=== PATIENT | male | born 1985 | race African-American/Black ===

== ENCOUNTER 2022-02-07 22:06 | Inpatient (IN) | payer MEDICAID, SELFPAY ==
[~2022-02-07] VITALS: Ht 175.3 cm; Wt 95.8 kg
[~2022-02-07 22:06] MED LIST: CEPH-558 PO; DIVA-112 PO; FLUO10TA3 PO; QUET200T5 PO; TOPI25 PO
[2022-02-08 00:37] LABS: COVID AG,FIA SOURCE NASAL SWAB
[2022-02-08 00:52] LABS: BASOPHILS % (AUTO) 0.4 % (0.0-2.0); EOSINOPHILS % (AUTO) 0.3 % (1.0-6.0); HEMOGLOBIN 14.8 g/dL (13.5-17.5); LYMPHOCYTES # (AUTO) 1.3 K/uL (1.0-4.8); MEAN CORPUSCULAR HEMOGLOBIN 28.8 pg (26.0-34.0); MEAN CORPUSCULAR HGB CONC 33.7 G/dL (31.0-37.0); MEAN CORPUSCULAR VOLUME 86 fL (80-100); MONOCYTES # (AUTO) 1.2 K/uL (0.1-1.0); MONOCYTES % (AUTO) 12.1 % (2.0-9.0); NEUTROPHILS # (AUTO) 7.3 K/uL (1.8-7.7); NEUTROPHILS % (AUTO) 74.2 % (40.0-70.0); PLATELET COUNT (AUTO) 321 K/uL (150-450); RED BLOOD CELL COUNT(AUTO) 5.15 MIL/uL (4.50-5.90); RED CELL DISTRIBUTION WIDTH 13.2 % (11.5-14.5)
[2022-02-08 00:58] LABS: ANION GAP 10 mmol/L (8-16); CALCIUM, TOTAL 10.1 mg/dL (8.8-10.5); CARBON DIOXIDE 27 mmol/L (22-29); CHLORIDE 101 mmol/L (98-107); CREATININE 1.72 mg/dL (0.60-1.30); GLUCOSE,RANDOM 116 mg/dL (70-110); POTASSIUM 3.7 mmol/L (3.5-5.1); SODIUM SERUM 138 mmol/L (136-145); UREA NITROGEN, BLOOD 17 mg/dL (7-18)
[2022-02-08 00:59] LABS: GLOMERULAR FILTR. RATE CALC 55 mL/min (>60)
[2022-02-08 01:06] LABS: ALANINE AMINOTRANSFERASE 24 U/L (12-78); ALBUMIN 4.5 g/dL (3.4-5.0); ALKALINE PHOSPHATASE 82 U/L (46-116); ASPARTATE AMINOTRANSFERASE 29 U/L (15-37); BILIRUBIN,TOTAL 0.5 mg/dL (0.1-1.0); TOTAL PROTEIN, SERUM 9.2 g/dL (6.4-8.2)
[2022-02-08 01:07] LABS: VALPROIC ACID < 3 mcg/mL (50-100)
[2022-02-08 05:27] LABS: AMPHET/METH SCREEN,URINE NEGATIVE (NEGATIVE); BARBITURATE SCREEN, URINE NEGATIVE (NEGATIVE); BENZODIAZEPINES SCREEN,URINE NEGATIVE (NEGATIVE); CANNABINOID SCREEN,URINE NEGATIVE (NEGATIVE); COCAINE SCREEN,URINE NEGATIVE (NEGATIVE); METHADONE SCREEN, URINE NEGATIVE (NEGATIVE); OPIATE SCREEN,URINE NEGATIVE (NEGATIVE)
[2022-02-08 05:29] LABS: PHENCYCLIDINE SCREEN,URINE NEGATIVE (NEGATIVE)
[2022-02-08] MEDS ORDERED: QUEtiapine FUMARATE 100 MG TABLET PO PRN (07:30)
[2022-02-08] MEDS ORDERED: LORazepam 2 MG TABLET PO PRN (07:30)
[2022-02-08] MEDS ORDERED: ZOLPIDEM TARTRATE 10 MG TABLET PO PRN (07:30)
[2022-02-08 09:11] LABS: APPEARANCE,URINE CLEAR (CLEAR); BILIRUBIN,URINE NEGATIVE (NEGATIVE); GLUCOSE, URINE (UA) NEGATIVE (NEGATIVE); KETONES,URINE NEGATIVE (NEGATIVE); LEUKOCYTE ESTERASE ,URINE NEGATIVE (NEGATIVE); NITRATE,URINE NEGATIVE (NEGATIVE); OCCULT BLOOD,URINE NEGATIVE (NEGATIVE); PH,URINE 5.5 (5.0-8.0); PROTEIN,URINE NEGATIVE (NEGATIVE); SPECIFIC GRAVITIY, URINE 1.009 (1.003-1.030); UROBILINOGEN,URINE <=1.0 mg/dL (<=1.0)
[2022-02-08 09:18] LABS: AMPHET/METH SCREEN,URINE NEGATIVE (NEGATIVE); BARBITURATE SCREEN, URINE NEGATIVE (NEGATIVE); BENZODIAZEPINES SCREEN,URINE NEGATIVE (NEGATIVE); CANNABINOID SCREEN,URINE NEGATIVE (NEGATIVE); COCAINE SCREEN,URINE NEGATIVE (NEGATIVE); METHADONE SCREEN, URINE NEGATIVE (NEGATIVE); OPIATE SCREEN,URINE NEGATIVE (NEGATIVE)
[2022-02-08 09:19] LABS: PHENCYCLIDINE SCREEN,URINE NEGATIVE (NEGATIVE)
[2022-02-08 16:18] VITALS: BP 124/86
[2022-02-08] MEDS ORDERED: MIRTAZAPINE 15 MG TABLET PO ONE (19:30)
[2022-02-08] MEDS ORDERED: TUBERCULIN, PURIFIED PROTEIN DERIVATIVE 5 TU/0.1 ML SYRINGE ID ONE (19:30)
[2022-02-08] MEDS ORDERED: LOPERAMIDE HCL 2 MG CAPSULE PO PRN (19:30)
[2022-02-08] MEDS ORDERED: GuaiFENesin/D-METHORPHAN [SUGAR-FREE] 200-20MG/10 ML SYRUP UDCUP PO PRN (19:30)
[2022-02-08] MEDS ORDERED: MAGNESIUM HYDROXIDE SUSPENSION 30 ML UDCUP PO PRN (19:30)
[2022-02-08] MEDS ORDERED: PROMETHAZINE HCL 25 MG TABLET PO PRN (19:30)
[2022-02-08] MEDS ORDERED: MAG HYDROX/AL HYDROX/SIMETH ES 30 ML SUSPENSION UDCUP PO PRN (19:30)
[2022-02-08] MEDS ORDERED: HydrOXYzine PAMOATE 50 MG CAPSULE PO PRN (19:30)
[2022-02-08] MEDS: BENZOCAINE/MENTHOL/ZINC CL 20% 11.9 GM GEL TP PRN (19:43)
[2022-02-08] MEDS: LevETIRAcetam 500 MG TABLET PO SCH (19:43)
[2022-02-08] MEDS: ACETAMINOPHEN 325 MG TABLET PO PRN (20:04)
[2022-02-08] MEDS: MELATONIN 5 MG TABLET PO SCH (20:04)
[2022-02-08] MEDS ORDERED: QUEtiapine FUMARATE 200 MG TABLET PO SCH (21:00)
[2022-02-09 06:52] LABS: CHOL/HDL RATIO 4.6 (4.2-7.3); FREE T4 (FREE THYROXINE) 0.75 ng/dL (0.76-1.46); THYROID STIMULATING HORMONE 3.67 uIU/mL (0.36-3.74)
[2022-02-09 07:29] LABS: HEMOGLOBIN A1C 5.8 % (3.8-5.6)
[2022-02-09 08:30] VITALS: BP 143/99
[2022-02-09] MEDS: LevETIRAcetam 500 MG TABLET PO SCH ×2 (08:34→16:20)
[2022-02-09] MEDS: DIVALPROEX SODIUM 500 MG DR TABLET PO SCH ×2 (08:34→16:20)
[2022-02-09] MEDS: THIAMINE 100 MG TABLET PO SCH ×2 (08:34→17:00)
[2022-02-09] MEDS: FOLIC ACID 1 MG TABLET PO SCH (08:34)
[2022-02-09] MEDS: OMEGA-3/DHA/EPA/FISH OIL 1,000 MG CAPSULE PO SCH (08:34)
[2022-02-09] MEDS: TOPIRAMATE 25 MG TABLET PO SCH ×2 (08:34→16:20)
[2022-02-09] MEDS: DEXTROMETHORPHAN HBR/QUINIDINE 20/10 MG CAPSULE PO SCH (08:35)
[2022-02-09] MEDS: MULTIVITAMINS WITH MINERALS, THERAPEUTIC TABLET PO SCH (08:35)
[2022-02-09] MEDS ORDERED: TOPIRAMATE 25 MG TABLET PO SCH (09:00)
[2022-02-09 16:52] VITALS: BP 120/79
[2022-02-09] MEDS: MELATONIN 5 MG TABLET PO SCH (20:57)
[2022-02-09] MEDS ORDERED: MIRTAZAPINE 15 MG TABLET PO SCH (21:00)
[2022-02-09] MEDS: QUEtiapine FUMARATE 300 MG TABLET PO SCH (21:07)
[2022-02-10] MEDS: BENZOCAINE/MENTHOL/ZINC CL 20% 11.9 GM GEL TP PRN ×2 (02:31→16:57)
[2022-02-10] MEDS: FOLIC ACID 1 MG TABLET PO SCH (09:50)
[2022-02-10] MEDS: LevETIRAcetam 500 MG TABLET PO SCH ×2 (09:50→16:51)
[2022-02-10] MEDS: THIAMINE 100 MG TABLET PO SCH ×2 (09:50→16:51)
[2022-02-10] MEDS: TOPIRAMATE 25 MG TABLET PO SCH ×2 (09:50→16:51)
[2022-02-10] MEDS: OMEGA-3/DHA/EPA/FISH OIL 1,000 MG CAPSULE PO SCH (09:50)
[2022-02-10] MEDS: MULTIVITAMINS WITH MINERALS, THERAPEUTIC TABLET PO SCH (09:50)
[2022-02-10] MEDS: DEXTROMETHORPHAN HBR/QUINIDINE 20/10 MG CAPSULE PO SCH (09:50)
[2022-02-10] MEDS: DIVALPROEX SODIUM 500 MG DR TABLET PO SCH ×2 (09:50→16:51)
[2022-02-10 10:16] LABS: ALBUMIN 3.6 g/dL (3.4-5.0); BILIRUBIN,TOTAL 0.3 mg/dL (0.1-1.0); CALCIUM, TOTAL 9.3 mg/dL (8.8-10.5); CREATININE 1.63 mg/dL (0.60-1.30); POTASSIUM 3.7 mmol/L (3.5-5.1); TOTAL PROTEIN, SERUM 8.1 g/dL (6.4-8.2)
[2022-02-10 16:00] VITALS: BP 116/69
[2022-02-10] MEDS: QUEtiapine FUMARATE 300 MG TABLET PO SCH (20:10)
[2022-02-10] MEDS: MELATONIN 5 MG TABLET PO SCH (20:10)
[2022-02-10] MEDS: MIRTAZAPINE 30 MG TABLET PO SCH (20:10)
[2022-02-11] MEDS: OMEGA-3/DHA/EPA/FISH OIL 1,000 MG CAPSULE PO SCH (08:58)
[2022-02-11] MEDS: FOLIC ACID 1 MG TABLET PO SCH (08:58)
[2022-02-11] MEDS: DEXTROMETHORPHAN HBR/QUINIDINE 20/10 MG CAPSULE PO SCH (08:58)
[2022-02-11] MEDS: MULTIVITAMINS WITH MINERALS, THERAPEUTIC TABLET PO SCH (08:58)
[2022-02-11] MEDS: DIVALPROEX SODIUM 500 MG DR TABLET PO SCH ×3 (08:58→16:26)
[2022-02-11] MEDS: LevETIRAcetam 500 MG TABLET PO SCH ×2 (08:58→16:26)
[2022-02-11] MEDS: THIAMINE 100 MG TABLET PO SCH ×2 (08:58→16:26)
[2022-02-11] MEDS: TOPIRAMATE 25 MG TABLET PO SCH ×2 (08:58→16:26)
[2022-02-11 09:16] VITALS: BP 139/97
[2022-02-11 16:08] VITALS: BP 133/77
[2022-02-11] MEDS: MIRTAZAPINE 30 MG TABLET PO SCH (20:55)
[2022-02-11] MEDS: MELATONIN 5 MG TABLET PO SCH (20:56)
[2022-02-11] MEDS: QUEtiapine FUMARATE 200 MG TABLET PO SCH (20:56)
[2022-02-12 08:42] VITALS: BP 142/96
[2022-02-12] MEDS: THIAMINE 100 MG TABLET PO SCH ×2 (09:30→16:30)
[2022-02-12] MEDS: TOPIRAMATE 25 MG TABLET PO SCH ×2 (09:30→16:30)
[2022-02-12] MEDS: MULTIVITAMINS WITH MINERALS, THERAPEUTIC TABLET PO SCH (09:30)
[2022-02-12] MEDS: DIVALPROEX SODIUM 500 MG DR TABLET PO SCH ×3 (09:30→16:30)
[2022-02-12] MEDS: OMEGA-3/DHA/EPA/FISH OIL 1,000 MG CAPSULE PO SCH (09:30)
[2022-02-12] MEDS: LevETIRAcetam 500 MG TABLET PO SCH ×2 (09:30→16:30)
[2022-02-12] MEDS: DEXTROMETHORPHAN HBR/QUINIDINE 20/10 MG CAPSULE PO SCH (09:31)
[2022-02-12] MEDS: FOLIC ACID 1 MG TABLET PO SCH (09:31)
[2022-02-12 16:24] VITALS: BP 131/90
[2022-02-12] MEDS: MIRTAZAPINE 30 MG TABLET PO SCH (20:04)
[2022-02-12] MEDS: QUEtiapine FUMARATE 200 MG TABLET PO SCH (20:04)
[2022-02-12] MEDS: MELATONIN 5 MG TABLET PO SCH (20:04)
[2022-02-13 08:00] VITALS: BP 136/81
[2022-02-13] MEDS: OMEGA-3/DHA/EPA/FISH OIL 1,000 MG CAPSULE PO SCH (09:34)
[2022-02-13] MEDS: FOLIC ACID 1 MG TABLET PO SCH (09:34)
[2022-02-13] MEDS: THIAMINE 100 MG TABLET PO SCH ×2 (09:34→17:54)
[2022-02-13] MEDS: MULTIVITAMINS WITH MINERALS, THERAPEUTIC TABLET PO SCH (09:34)
[2022-02-13] MEDS: DEXTROMETHORPHAN HBR/QUINIDINE 20/10 MG CAPSULE PO SCH (09:35)
[2022-02-13] MEDS: LevETIRAcetam 500 MG TABLET PO SCH ×2 (09:35→17:54)
[2022-02-13] MEDS: DIVALPROEX SODIUM 500 MG DR TABLET PO SCH ×3 (09:35→17:54)
[2022-02-13] MEDS: TOPIRAMATE 25 MG TABLET PO SCH ×2 (09:35→17:54)
[2022-02-13] MEDS: BENZOCAINE/MENTHOL/ZINC CL 20% 11.9 GM GEL TP PRN (13:36)
[2022-02-13] MEDS: ACETAMINOPHEN 325 MG TABLET PO PRN (13:36)
[2022-02-13 16:03] VITALS: BP 125/75
[2022-02-13] MEDS: QUEtiapine FUMARATE 200 MG TABLET PO SCH (20:15)
[2022-02-13] MEDS: MIRTAZAPINE 30 MG TABLET PO SCH (20:24)
[2022-02-13] MEDS: MELATONIN 5 MG TABLET PO SCH (20:25)
[2022-02-14 06:28] LABS: COVID AG,FIA SOURCE NASAL SWAB
[2022-02-14] MEDS: DIVALPROEX SODIUM 500 MG DR TABLET PO SCH ×3 (08:09→16:44)
[2022-02-14] MEDS: FOLIC ACID 1 MG TABLET PO SCH (08:09)
[2022-02-14] MEDS: LevETIRAcetam 500 MG TABLET PO SCH ×2 (08:09→16:38)
[2022-02-14] MEDS: THIAMINE 100 MG TABLET PO SCH ×2 (08:09→16:38)
[2022-02-14] MEDS: MULTIVITAMINS WITH MINERALS, THERAPEUTIC TABLET PO SCH (08:09)
[2022-02-14] MEDS: TOPIRAMATE 25 MG TABLET PO SCH ×2 (08:09→16:38)
[2022-02-14] MEDS: DEXTROMETHORPHAN HBR/QUINIDINE 20/10 MG CAPSULE PO SCH (08:09)
[2022-02-14] MEDS: OMEGA-3/DHA/EPA/FISH OIL 1,000 MG CAPSULE PO SCH (08:09)
[2022-02-14 08:22] VITALS: BP 124/75
[2022-02-14 16:06] VITALS: BP 113/70
[2022-02-14] MEDS: QUEtiapine FUMARATE 200 MG TABLET PO SCH (20:46)
[2022-02-14] MEDS: MELATONIN 5 MG TABLET PO SCH (20:47)
[2022-02-14] MEDS: MIRTAZAPINE 30 MG TABLET PO SCH (20:47)
[2022-02-14] MEDS ORDERED: GABAPENTIN 400 MG CAPSULE PO PRN (21:00)
[2022-02-14] MEDS ORDERED: ESZOPICLONE 3 MG TABLET PO PRN (21:00)
[2022-02-14] MEDS ORDERED: MIRTAZAPINE 30 MG TABLET PO SCH (21:00)
[2022-02-15 08:00] VITALS: BP 136/95
[2022-02-15] MEDS: DEXTROMETHORPHAN HBR/QUINIDINE 20/10 MG CAPSULE PO SCH (10:10)
[2022-02-15] MEDS: LevETIRAcetam 500 MG TABLET PO SCH ×2 (10:12→17:03)
[2022-02-15] MEDS: DIVALPROEX SODIUM 500 MG DR TABLET PO SCH ×3 (10:12→17:03)
[2022-02-15] MEDS: OMEGA-3/DHA/EPA/FISH OIL 1,000 MG CAPSULE PO SCH (10:12)
[2022-02-15] MEDS: TOPIRAMATE 25 MG TABLET PO SCH ×2 (10:12→17:03)
[2022-02-15] MEDS: MULTIVITAMINS WITH MINERALS, THERAPEUTIC TABLET PO SCH (10:13)
[2022-02-15] MEDS: THIAMINE 100 MG TABLET PO SCH ×2 (10:13→17:03)
[2022-02-15] MEDS: FOLIC ACID 1 MG TABLET PO SCH (10:13)
[2022-02-15 16:07] VITALS: BP 134/92
[2022-02-15] MEDS: QUEtiapine FUMARATE 200 MG TABLET PO SCH (20:46)
[2022-02-15] MEDS: MELATONIN 5 MG TABLET PO SCH (20:46)
[2022-02-15] MEDS ORDERED: MIRTAZAPINE 30 MG TABLET PO SCH (21:00)
[2022-02-16 09:21] VITALS: BP 129/92
[2022-02-16] MEDS: DIVALPROEX SODIUM 500 MG DR TABLET PO SCH (09:32)
[2022-02-16] MEDS: DEXTROMETHORPHAN HBR/QUINIDINE 20/10 MG CAPSULE PO SCH (09:32)
[2022-02-16] MEDS: MULTIVITAMINS WITH MINERALS, THERAPEUTIC TABLET PO SCH (09:32)
[2022-02-16] MEDS: LevETIRAcetam 500 MG TABLET PO SCH (09:33)
[2022-02-16] MEDS: TOPIRAMATE 25 MG TABLET PO SCH (09:33)
[2022-02-16] MEDS: OMEGA-3/DHA/EPA/FISH OIL 1,000 MG CAPSULE PO SCH (09:33)
[2022-02-16] MEDS: FOLIC ACID 1 MG TABLET PO SCH (09:33)
[2022-02-16] MEDS: THIAMINE 100 MG TABLET PO SCH (09:33)
[2022-02-16] MEDS ORDERED: MIRT-93 PO (09:52)
[2022-02-16] MEDS ORDERED: OMEG-135 PO (09:52)
[2022-02-16] MEDS ORDERED: QUET200T30 PO (09:52)
[2022-02-16] MEDS ORDERED: LEVE500T8 PO (09:52)
[2022-02-16] MEDS ORDERED: MELA5TAB40 PO (09:52)
[2022-02-16] MEDS ORDERED: TOPI25 PO (09:52)
[2022-02-16] MEDS ORDERED: DIVA-112 PO (09:52)
== END 2022-02-16 10:30 | disposition home or self-care (01) | DRG 750 ==
LOC: EMS 22:09 → 3EI 02-08 14:51
PROVIDERS: ADMIT Psychiatry & Neurology Psychiatry; ATTEND Psychiatry & Neurology Psychiatry
DX: F25.1 Schizoaffective disorder, depressive type (principal); G70.00 Myasthenia gravis without (acute) exacerbation; R45.851 Suicidal ideations; F41.9 Anxiety disorder, unspecified; F60.0 Paranoid personality disorder; N18.9 Chronic kidney disease, unspecified; F32.A Depression, unspecified; Z20.822 Contact with and (suspected) exposure to COVID-19; Z87.820 Personal history of traumatic brain injury; Z65.3 Problems related to other legal circumstances; Z59.00 Homelessness unspecified; Z55.9 Problems related to education and literacy, unspecified; Z63.9 Problem related to primary support group, unspecified; Z79.899 Other long term (current) drug therapy
CPT/HCPCS: 80053; 80061; 80164; 81003; 82550; 83036; 84439; 84443; 85025; 86592; 99285; G0480; Q9967

== ENCOUNTER 2022-04-28 21:20 | Inpatient (IN) | payer MEDICAID ==
[~2022-04-28] VITALS: Ht 175.3 cm; Wt 98.0 kg
[~2022-04-28 21:20] MED LIST changes: +ACET-2247 PO; +ALBU8HFA IH; -CEPH-558 PO; +CLON0.1T2 PO; +DOCU100C33 PO; -FLUO10TA3 PO; +GUAIF10 PO; +IBUP-2492 PO; +LEVE250T PO; +LEVE500T8 PO; +LEVE500T99 PO; +LOPE2TAB26 PO; +MAG-93 PO; +MAGN-169 PO; +MELA5TAB21 PO; +MELA5TAB40 PO; +MIRT-149 PO; +MIRT-93 PO; +NICO-703 TD; +OMEG-135 PO; +ONDA-104 PO; +QUET200T PO; +QUET200T30 PO; -QUET200T5 PO; +TOPI25TA48 PO
[2022-04-28] MEDS ORDERED: PETR18JE3 TP (21:25)
[2022-04-28] MEDS ORDERED: ZOLPIDEM TARTRATE 10 MG TABLET PO PRN (22:15)
[2022-04-28] MEDS ORDERED: HALOPERIDOL 5 MG TABLET PO PRN (22:15)
[2022-04-28] MEDS ORDERED: LORazepam 2 MG TABLET PO PRN (22:15)
[2022-04-28 23:53] VITALS: BP 121/86
[2022-04-29] MEDS ORDERED: GuaiFENesin/D-METHORPHAN [SUGAR-FREE] 200-20MG/10 ML SYRUP UDCUP PO PRN (00:45)
[2022-04-29] MEDS ORDERED: MAGNESIUM HYDROXIDE SUSPENSION 30 ML UDCUP PO PRN (00:45)
[2022-04-29] MEDS ORDERED: PETROLATUM,WHITE 28 GM JELLY TP PRN (00:45)
[2022-04-29] MEDS ORDERED: ACETAMINOPHEN 325 MG TABLET PO PRN (00:45)
[2022-04-29] MEDS ORDERED: LOPERAMIDE HCL 2 MG CAPSULE PO PRN (00:45)
[2022-04-29] MEDS ORDERED: DOCUSATE SODIUM 100 MG CAPSULE PO PRN (00:45)
[2022-04-29] MEDS ORDERED: ONDANSETRON HCL 4 MG TABLET PO PRN (00:45)
[2022-04-29] MEDS ORDERED: MAG HYDROX/AL HYDROX/SIMETH ES 30 ML SUSPENSION UDCUP PO PRN (00:45)
[2022-04-29] MEDS ORDERED: IBUPROFEN 400 MG TABLET PO PRN (00:45)
[2022-04-29] MEDS ORDERED: CloNIDine HCL 0.1 MG TABLET PO PRN (00:45)
[2022-04-29] MEDS ORDERED: ALBUTEROL SULFATE HFA 90 MCG/PUFF 8 GM INHALER IH PRN (00:45)
[2022-04-29] MEDS ORDERED: NICOTINE 14 MG/24 HOUR PATCH TD PRN (00:45)
[2022-04-29] MEDS: LevETIRAcetam 500 MG TABLET PO SCH ×2 (08:15→16:07)
[2022-04-29] MEDS: TOPIRAMATE 25 MG TABLET PO SCH ×2 (08:15→16:07)
[2022-04-29] MEDS: OMEGA-3/DHA/EPA/FISH OIL 1,000 MG CAPSULE PO SCH (08:15)
[2022-04-29 09:10] VITALS: BP 133/50
[2022-04-29 16:00] VITALS: BP 100/72
[2022-04-29] MEDS: QUEtiapine FUMARATE 200 MG TABLET PO SCH (20:28)
[2022-04-29] MEDS: MELATONIN 5 MG TABLET PO SCH (20:29)
[2022-04-29] MEDS: MIRTAZAPINE 15 MG TABLET PO SCH (20:29)
[2022-04-29 20:57] VITALS: BP 116/86
[2022-04-30 08:15] VITALS: BP 104/60
[2022-04-30 08:51] LABS: BASOPHILS % (AUTO) 0.7 % (0.0-2.0); EOSINOPHILS % (AUTO) 7.1 % (1.0-6.0); HEMATOCRIT 43.8 % (41-53); HEMOGLOBIN 14.7 g/dL (13.5-17.5); LYMPHOCYTES # (AUTO) 1.9 K/uL (1.0-4.8); LYMPHOCYTES % (AUTO) 41.7 % (22.0-44.0); MEAN CORPUSCULAR HEMOGLOBIN 28.9 pg (26.0-34.0); MEAN CORPUSCULAR HGB CONC 33.6 G/dL (31.0-37.0); MEAN CORPUSCULAR VOLUME 86 fL (80-100); MONOCYTES # (AUTO) 0.3 K/uL (0.1-1.0); MONOCYTES % (AUTO) 7.1 % (2.0-9.0); NEUTROPHILS % (AUTO) 43.4 % (40.0-70.0); PLATELET COUNT (AUTO) 335 K/uL (150-450); RED BLOOD CELL COUNT(AUTO) 5.09 MIL/uL (4.50-5.90); RED CELL DISTRIBUTION WIDTH 12.8 % (11.5-14.5)
[2022-04-30] MEDS: OMEGA-3/DHA/EPA/FISH OIL 1,000 MG CAPSULE PO SCH (08:52)
[2022-04-30] MEDS: LevETIRAcetam 500 MG TABLET PO SCH ×2 (08:52→17:05)
[2022-04-30] MEDS: TOPIRAMATE 25 MG TABLET PO SCH ×2 (08:52→17:45)
[2022-04-30 08:59] LABS: HEMOGLOBIN A1C 5.7 % (3.8-5.6)
[2022-04-30 09:18] LABS: ALANINE AMINOTRANSFERASE 19 U/L (12-78); ALBUMIN 3.9 g/dL (3.4-5.0); ALKALINE PHOSPHATASE 76 U/L (46-116); ANION GAP 8 mmol/L (8-16); ASPARTATE AMINOTRANSFERASE 18 U/L (15-37); BILIRUBIN,TOTAL 0.2 mg/dL (0.1-1.0); CALCIUM, TOTAL 9.3 mg/dL (8.8-10.5); CARBON DIOXIDE 26 mmol/L (22-29); CHLORIDE 106 mmol/L (98-107); CREATININE 1.32 mg/dL (0.60-1.30); GLOMERULAR FILTR. RATE CALC > 60 mL/min (>60); GLUCOSE,RANDOM 109 mg/dL (70-110); POTASSIUM 3.7 mmol/L (3.5-5.1); SODIUM SERUM 140 mmol/L (136-145); THYROID STIMULATING HORMONE 3.01 uIU/mL (0.36-3.74); TOTAL PROTEIN, SERUM 8.8 g/dL (6.4-8.2); UREA NITROGEN, BLOOD 13 mg/dL (7-18)
[2022-04-30 16:00] VITALS: BP 139/62
[2022-04-30] MEDS: QUEtiapine FUMARATE 200 MG TABLET PO SCH (20:24)
[2022-04-30 20:25] VITALS: BP 122/63
[2022-04-30] MEDS: MIRTAZAPINE 15 MG TABLET PO SCH (20:25)
[2022-04-30] MEDS: MELATONIN 5 MG TABLET PO SCH (20:25)
[2022-05-01 08:17] VITALS: BP 122/72
[2022-05-01] MEDS: LevETIRAcetam 500 MG TABLET PO SCH ×2 (08:21→16:00)
[2022-05-01] MEDS: TOPIRAMATE 25 MG TABLET PO SCH ×2 (08:22→16:00)
[2022-05-01] MEDS: OMEGA-3/DHA/EPA/FISH OIL 1,000 MG CAPSULE PO SCH (08:22)
[2022-05-01 16:05] VITALS: BP 111/69
[2022-05-01] MEDS: MELATONIN 5 MG TABLET PO SCH (20:16)
[2022-05-01] MEDS: QUEtiapine FUMARATE 200 MG TABLET PO SCH (20:17)
[2022-05-01] MEDS: MIRTAZAPINE 15 MG TABLET PO SCH (20:17)
[2022-05-01 20:55] VITALS: BP 117/68
[2022-05-02 08:55] VITALS: BP 141/98
[2022-05-02] MEDS: LevETIRAcetam 500 MG TABLET PO SCH ×2 (09:33→16:07)
[2022-05-02] MEDS: TOPIRAMATE 25 MG TABLET PO SCH ×2 (09:33→16:07)
[2022-05-02] MEDS: OMEGA-3/DHA/EPA/FISH OIL 1,000 MG CAPSULE PO SCH (09:33)
[2022-05-02 16:43] VITALS: BP 130/88
[2022-05-02] MEDS: MELATONIN 5 MG TABLET PO SCH (20:02)
[2022-05-02] MEDS: QUEtiapine FUMARATE 200 MG TABLET PO SCH (20:02)
[2022-05-02] MEDS: MIRTAZAPINE 15 MG TABLET PO SCH (20:03)
[2022-05-02 20:19] VITALS: BP 138/88
[2022-05-03 08:30] VITALS: BP 107/64
[2022-05-03] MEDS: OMEGA-3/DHA/EPA/FISH OIL 1,000 MG CAPSULE PO SCH (08:33)
[2022-05-03] MEDS: LevETIRAcetam 500 MG TABLET PO SCH (08:33)
[2022-05-03] MEDS: TOPIRAMATE 25 MG TABLET PO SCH (08:33)
[2022-05-03 11:14] LABS: COVID AG,FIA SOURCE NASAL SWAB
== END 2022-05-03 16:00 | disposition home or self-care (01) | DRG 750 ==
LOC: 3EI 22:00
PROVIDERS: ADMIT Psychiatry & Neurology Psychiatry; ATTEND Psychiatry & Neurology Psychiatry
DX: F25.9 Schizoaffective disorder, unspecified (principal); R45.851 Suicidal ideations; G40.909 Epilepsy, unspecified, not intractable, without status epilepticus; K21.9 Gastro-esophageal reflux disease without esophagitis; G47.00 Insomnia, unspecified; Z20.822 Contact with and (suspected) exposure to COVID-19; N18.9 Chronic kidney disease, unspecified; Z79.899 Other long term (current) drug therapy
CPT/HCPCS: 80053; 80061; 83036; 84443; 85025; 87081; G0482; Q9967